=== PATIENT | female | born 1965 | race Caucasian/White ===

== ENCOUNTER 2016-11-07 12:39 | Emergency (ER) | payer MEDICARE, OTHER ==
[~2016-11-07] VITALS: Ht 165.1 cm; Wt 68.0 kg
--- NOTE | ~2016-11-07 | EKG ---
PATIENT: JOSE MONROY UNIT #: [id number] Ventricular Rate: 82 BPM Atrial Rate: 82 BPM P-R Interval: 126 ms QRS Duration: 80 ms Q-T Interval: 392 ms QTC Calculation(Bezet): 457 ms P Sanderson: 56 degrees Calculated R Sanderson: 75 degrees Calculated T Sanderson: 30 degrees Diagnosis Line: Normal sinus rhythm Diagnosis Line: Normal ECG Diagnosis Line: When compared with ECG of 18-MAY-2011 12:38, Diagnosis Line: No significant change was found Diagnosis Line: Confirmed by DEYANIRA GAFFNEY MD ([id number]) on Diagnosis Line: 11/08/2016 2:33:47 PM INTERPRETING MD: YEIMY NATARAJAN
--- NOTE | ~2016-11-07 | CR72 ---
[facility]. [facility] A Service of [facility] & [facility] RADIOLOGY TEXT RESULTS PATIENT: JOSE MONROY LOCATION: SED : 67 UNIT #: [id number] AGE: [address]: Armin Fuentes MD SEX: F ORDER DR: [id number] [place] [id number] E MR#: [id number] Acc #: [id number] NAME: JOSE MONROY : 1965 SEX: F STUDY DATE/TIME: 11/07/2016 13:03 UNIT: SED ROOM: STUDY DESCRIPTION: CR Chest Single View Portable Attending Physician: Armin Fuentes M.D. Ordering Physician: Armin Fuentes M.D. Primary Care Physician: Stephen Sun M.D. MEDICAL IMAGING REPORT This report is preliminary unless electronic signature is present. EXAM Chest portable 11/07/2016 1303 hours HISTORY 50-year-old woman complaining of anterior chest pain and shortness of air since last night. History of prior hysterectomy for malignancy. COMPARISON 04/11/2013 FINDINGS Portable upright chest demonstrates normal cardiac, mediastinal and hilar contours. The lungs are clear. There is no effusion or pneumothorax. IMPRESSION Normal upright portable chest film. Dictated by... Sabrina Harman M.D. THIS IS AN ELECTRONICALLY VERIFIED REPORT Sabrina Harman M.D. at 11/08/2016 8:53 AM [place]/yudith TD: 11/07/2016 20:41 JOB #: [id number] MEDICAL IMAGING REPORT Page 1 of 1
[~2016-11-07 12:39] MED LIST: ABILIFY PO; ALBUTEROL17 GM INH; AUGMENTIN PO; BROMFED DM COU118 ML PO; COGENTIN PO; CYMBALTA PO; CYMBALTA30 MG PO; DILANTIN PO; ENDOCET 5-3251 EACH PO; FLEXERIL PO; INDERAL LA60 MG PO; INDERAL60 MG PO; KLONOPIN PO; LEVOXYL75 MC1 PO; LORTAB 5/500 TA1 TA1 PO; LORTAB 5/500 TA1 TA2; LORTAB 7.5-5001 TAB PO; MIRALAX17 GM PO; MOBIC PO; NAPROXEN PO; NORVASC PO; PHENERGAN25 MG PO; PREMARIN VAG CR45 GM MC; PREMARIN VAG CR45 GM TOP; RISPERIDONE PO; ROBAXIN500 MG PO; SENNA PO; SEROQUEL PO; SEROQUEL300 MG PO; TEGRETOL PO; TEMAZEPAM PO; TOPAMAX50 MG PO; VIBRAMYCIN100 M1 PO; VOLTAREN75 MG PO; XANAX2 MG PO
[2016-11-07 13:15] LABS: POC - CKMB 1.1 ng/mL (0.0-7.9); POC - TROPONIN <0.05 ng/mL (<=0.05)
[2016-11-07 13:18] LABS: BASOPHIL# 0.1 X10e3 (0-0.3); BASOPHIL% 0.8 % (0-2.5); EOSINOPHIL# 0.1 X10e3 (0-0.7); EOSINOPHIL% 1.5 % (0.0-7.0); HEMATOCRIT 43.7 % (35.0-45.0); HEMOGLOBIN 14.6 gm/dL (12.0-16.0); LYMPHOCYTE% 37.9 % (17.0-45.0); MEAN CELL VOLUME 92.7 FL (83-96); MEAN CORPUSCULAR HEMOGLOBIN 30.9 PG (28-34); MEAN CORPUSCULAR HGB CONC 33.4 g/dL (30-36); MEAN PLATELET VOLUME 11.1 FL (6.5-11.5); MONOCYTE# 0.5 X10e3 (0-1.0); MONOCYTE% 5.7 % (3.0-12.0); NEUTROPHIL# 4.3 X10e3 (1.5-7.1); NEUTROPHIL% 54.1 % (40-75); PLATELET COUNT 131 X10e3 (140-420); RED BLOOD COUNT 4.72 X10e (3.90-5.30); RED CELL DISTRIBUTION WIDTH 12.9 % (11.0-15.5)
[2016-11-07 13:19] LABS: DIFF IND NO
[2016-11-07 13:23] LABS: ALBUMIN SERUM 5.1 g/dL (3.5-5.0); BILIRUBIN, DIRECT 0.1 mg/dL (0.0-0.2); BILIRUBIN,INDIRECT 0.5 mg/dL (0.0-0.9); BILIRUBIN,TOTAL 0.6 mg/dL (0.2-2.0); BUN/CREATININE RATIO 22.5; CALCIUM SERUM 9.5 mg/dL (8.4-10.2); CREATININE SERUM 0.8 mg/dL (0.6-1.4); GLOM FILT RATE Estimated 86.6 mL/min (>60); POTASSIUM 3.4 mmol/L (3.5-5.1); PROTEIN TOTAL SERUM 8.2 g/dL (6.0-8.3)
== END 2016-11-07 14:11 | disposition home or self-care (01) ==
LOC: SED 12:39
PROVIDERS: Emergency Medicine
DX: R07.9 Chest pain, unspecified (principal); I10 Essential (primary) hypertension; F17.200 Nicotine dependence, unspecified, uncomplicated; Z88.5 Allergy status to narcotic agent
CPT/HCPCS: 36415; 71010; 80048; 80076; 82553; 84484; 85025; 93005; 99285